=== PATIENT | female | born 1940 | race Two or more races ===

== ENCOUNTER 2017-10-08 15:19 | Inpatient (IN) | payer SELFPAY ==
[~2017-10-08] VITALS: Ht 154.9 cm; Wt 59.9 kg
[2017-10-08] MEDS ORDERED: SODIUM CHLORIDE 0.9% 1,000 ML IV ONE (15:33)
[2017-10-08 16:23] LABS: Basophils # (auto) 0 uL; Basophils % (auto) 0.2 % (0.0-2.0); Eosinophils # (auto) 0 uL; Eosinophils % (auto) 0.2 % (0.0-7.0); Hematocrit 42.5 % (36.0-46.0); Hemoglobin 14.5 g/dL (12.2-16.2); Lymphocytes # (auto) 1.4 uL; Lymphocytes % (auto) 16.1 % (10.0-50.0); Mean Corpuscular Hemoglobin 31.2 pg (28.0-32.0); Mean Corpuscular Hgb Conc. 34.2 g/dL (32.0-36.0); Mean Corpuscular Volume 91.4 fL (80.0-100.0); Monocytes # (auto) 1.1 uL; Monocytes % (auto) 12.6 % (0.0-12.0); Neutrophils # (auto) 5.9 uL; Neutrophils % (auto) 70.9 % (37.0-80.0); Nucleated Red Blood Cells % 0.1 %; Platelet Count (auto) 226 10^3/uL (140-450); Red Blood Cells 4.65 10^6/uL (4.0-5.20); Red Cell Distribution Width 13.7 % (11.8-14.3); White Blood Cell 8.4 10^3/uL (4.4-10.8)
[2017-10-08 16:42] LABS: INR 0.93 (0.9-1.15); Partial Thromboplastin Time 26.1 sec (23.78-33.04)
[2017-10-08 16:49] LABS: Albumin 3.9 g/dL (3.4-5.0); BUN/Creatinine Ratio 14.2; Bilirubin, Total 0.6 mg/dL (0.2-1.0); Calcium 8.7 mg/dL (8.5-10.1); Potassium 4.6 mmol/L (3.5-5.1); Total Protein 7.7 g/dL (6.4-8.2)
[2017-10-08] MEDS ORDERED: ENOXAPARIN SOD 60 MG/0.6 ML SYRINGE SC ONE (17:00)
[2017-10-08] MEDS ORDERED: ASPirin 81 mg TAB PO ONE (17:00)
[2017-10-08] MEDS: SODIUM CHLORIDE 0.9% 1,000 ML IV SCH ×2 (17:07→21:48)
[2017-10-08] MEDS ORDERED: LACTULOSE 20Gm/30ML SOLN PO PRN (17:15)
[2017-10-08] MEDS ORDERED: HYDROcodone-ACET 5/325MG TAB PO ONE (17:15)
[2017-10-08] MEDS ORDERED: PROMETHAZINE HCL 25 MG/ML 1ML IV PRN (17:15)
[2017-10-08] MEDS ORDERED: TEMAZEPAM 15 MG CAP PO PRN (17:15)
[2017-10-08] MEDS ORDERED: MORPHINE SULF INJ 2 MG/ML SYRINGE 1ML IV PRN ×2 (17:15)
[2017-10-08] MEDS ORDERED: NITROGLYCERIN 0.4 MG SL TAB SL PRN (17:15)
[2017-10-08] MEDS ORDERED: LORazepam 0.5 MG TAB PO PRN (17:15)
[2017-10-08] MEDS ORDERED: LABETALOL HCL 5 MG/ML ML 20ML VIAL IV PRN (17:15)
[2017-10-08 18:19] LABS: CRP High Sensitivity 0.56 mg/dL (< 0.3)
[2017-10-08 18:25] LABS: Folate (Folic Acid) 21.61 ng/mL (5.38-24)
[2017-10-08 20:35] VITALS: BP 137/73
[2017-10-08] MEDS: ATORVASTATIN 20 MG TAB PO SCH (21:48)
[2017-10-08] MEDS ORDERED: ATEN100T PO (22:07)
[2017-10-09] VITALS (7 sets, daily range): BP systolic 115–191; BP diastolic 59–78
[2017-10-09] MEDS ORDERED: hydrALAZINE HCL 20 MG/ML VL IV ONE (03:00)
[2017-10-09 05:27] LABS: Urine WBC None Seen /hpf (0 - 5)
[2017-10-09 06:06] LABS: Alcohol, Urine < 3.0 mg/dL (0-5); Amphetamine Screen, Urine NEGATIVE (NEGATIVE); Barbiturate Scree,Urine NEGATIVE (NEGATIVE); Benzodiazephine Screen, Urine NEGATIVE (NEGATIVE); Cannabinoid Screen, Urine NEGATIVE (NEGATIVE); Cocaine Screen, Urine NEGATIVE (NEGATIVE); Opiate Scree,Urine NEGATIVE (NEGATIVE); Phencyclidine Screen, Urine NEGATIVE (NEGATIVE)
[2017-10-09 06:49] LABS: Urine Bacteria NONE SEEN /hpf (None Seen); Urine Blood Negative /uL (Negative); Urine Hyaline Cast MOD /lpf (0 - 2); Urine Mucus FEW (None Seen); Urine Specific Gravity 1.014 (1.001-1.035)
[2017-10-09] MEDS ORDERED: cloNIDine HCL 0.1 MG TAB PO ONE (08:00)
[2017-10-09] MEDS: ASPirin 81 mg TAB PO SCH (10:03)
[2017-10-09] MEDS: PANTOPRAZOLE 40 MG TAB PO SCH (10:03)
[2017-10-09] MEDS: ENOXAPARIN SOD 40 MG/0.4 ML SYRINGE SC SCH (10:03)
[2017-10-09] MEDS: ACETAMINOPHEN 500 MG TAB PO PRN ×2 (12:29→13:15)
[2017-10-09] MEDS: cloNIDine HCL 0.1 MG TAB PO PRN (14:54)
[2017-10-09] MEDS: SODIUM CHLORIDE 0.9% 1,000 ML IV SCH (18:04)
[2017-10-09] MEDS: ATORVASTATIN 20 MG TAB PO SCH (21:19)
[2017-10-10] VITALS: BP 150/89
[2017-10-10 06:27] LABS: Basophils # (auto) 0 uL; Basophils % (auto) 0.3 % (0.0-2.0); Eosinophils # (auto) 0 uL; Eosinophils % (auto) 0.3 % (0.0-7.0); Hematocrit 40.6 % (36.0-46.0); Hemoglobin 14.1 g/dL (12.2-16.2); Lymphocytes # (auto) 1.3 uL; Lymphocytes % (auto) 22.1 % (10.0-50.0); Mean Corpuscular Hemoglobin 31.5 pg (28.0-32.0); Mean Corpuscular Hgb Conc. 34.7 g/dL (32.0-36.0); Mean Corpuscular Volume 90.8 fL (80.0-100.0); Monocytes # (auto) 0.6 uL; Monocytes % (auto) 10.3 % (0.0-12.0); Neutrophils # (auto) 3.8 uL; Platelet Count (auto) 192 10^3/uL (140-450); Red Blood Cells 4.47 10^6/uL (4.0-5.20); Red Cell Distribution Width 13.3 % (11.8-14.3); White Blood Cell 5.7 10^3/uL (4.4-10.8)
[2017-10-10] MEDS: SODIUM CHLORIDE 0.9% 1,000 ML IV SCH ×2 (06:37→19:07)
[2017-10-10 06:42] LABS: Albumin 3.2 g/dL (3.4-5.0); BUN/Creatinine Ratio 28.9; Calcium 8.6 mg/dL (8.5-10.1)
[2017-10-10 06:45] LABS: Bilirubin, Total 0.5 mg/dL (0.2-1.0); Total Protein 6.6 g/dL (6.4-8.2)
[2017-10-10 08:00] VITALS: BP 176/79
[2017-10-10] MEDS: ASPirin 81 mg TAB PO SCH (08:58)
[2017-10-10] MEDS: PANTOPRAZOLE 40 MG TAB PO SCH (08:58)
[2017-10-10] MEDS: cloNIDine HCL 0.1 MG TAB PO PRN ×2 (08:58→22:59)
[2017-10-10] MEDS: ENOXAPARIN SOD 40 MG/0.4 ML SYRINGE SC SCH (08:59)
[2017-10-10] MEDS: HYDROcodone-ACET 5/325MG TAB PO PRN (09:21)
[2017-10-10 11:51] VITALS: BP 177/78
[2017-10-10 16:00] VITALS: BP 156/64
[2017-10-10 20:20] VITALS: BP 164/78
[2017-10-10 22:00] VITALS: BP 186/89
[2017-10-10] MEDS: ATORVASTATIN 20 MG TAB PO SCH (22:47)
[2017-10-11] MEDS: cloNIDine HCL 0.1 MG TAB PO PRN ×2 (03:05→12:37)
[2017-10-11] MEDS: HYDROcodone-ACET 5/325MG TAB PO PRN ×2 (03:16→22:38)
[2017-10-11 05:57] VITALS: BP 141/76
[2017-10-11 07:03] LABS: Basophils # (auto) 0 uL; Basophils % (auto) 0.2 % (0.0-2.0); Eosinophils # (auto) 0 uL; Eosinophils % (auto) 0.1 % (0.0-7.0); Hematocrit 43.9 % (36.0-46.0); Hemoglobin 15.1 g/dL (12.2-16.2); Lymphocytes # (auto) 1.2 uL; Lymphocytes % (auto) 15.8 % (10.0-50.0); Mean Corpuscular Hemoglobin 31.1 pg (28.0-32.0); Mean Corpuscular Hgb Conc. 34.3 g/dL (32.0-36.0); Mean Corpuscular Volume 90.8 fL (80.0-100.0); Monocytes # (auto) 0.7 uL; Monocytes % (auto) 9.4 % (0.0-12.0); Neutrophils # (auto) 5.4 uL; Neutrophils % (auto) 74.5 % (37.0-80.0); Platelet Count (auto) 213 10^3/uL (140-450); Red Blood Cells 4.83 10^6/uL (4.0-5.20); Red Cell Distribution Width 13.6 % (11.8-14.3); White Blood Cell 7.3 10^3/uL (4.4-10.8)
[2017-10-11 07:26] LABS: Albumin 3.7 g/dL (3.4-5.0); BUN/Creatinine Ratio 24.1; Bilirubin, Total 0.5 mg/dL (0.2-1.0); Potassium 3.6 mmol/L (3.5-5.1); Total Protein 7.5 g/dL (6.4-8.2)
[2017-10-11] MEDS: SODIUM CHLORIDE 0.9% 1,000 ML IV SCH ×2 (07:37→20:07)
[2017-10-11 08:38] VITALS: BP 155/89
[2017-10-11] MEDS: ENOXAPARIN SOD 40 MG/0.4 ML SYRINGE SC SCH (10:20)
[2017-10-11] MEDS: PANTOPRAZOLE 40 MG TAB PO SCH (10:21)
[2017-10-11] MEDS: ASPirin 81 mg TAB PO SCH (10:21)
[2017-10-11 12:00] VITALS: BP 161/97
[2017-10-11] MEDS: ACETAMINOPHEN 500 MG TAB PO PRN (13:28)
[2017-10-11 16:55] VITALS: BP 151/75
[2017-10-11 22:00] VITALS: BP 136/78
[2017-10-11] MEDS: ATORVASTATIN 20 MG TAB PO SCH (22:38)
[2017-10-12] VITALS (7 sets, daily range): BP systolic 141–206; BP diastolic 65–100
[2017-10-12] MEDS: SODIUM CHLORIDE 0.9% 1,000 ML IV SCH ×2 (05:00→21:07)
[2017-10-12 06:17] LABS: Basophils # (auto) 0 uL; Basophils % (auto) 0.1 % (0.0-2.0); Eosinophils # (auto) 0 uL; Eosinophils % (auto) 0.2 % (0.0-7.0); Hematocrit 38.3 % (36.0-46.0); Hemoglobin 13.2 g/dL (12.2-16.2); Lymphocytes % (auto) 13.9 % (10.0-50.0); Mean Corpuscular Hemoglobin 31.3 pg (28.0-32.0); Mean Corpuscular Hgb Conc. 34.6 g/dL (32.0-36.0); Mean Corpuscular Volume 90.7 fL (80.0-100.0); Monocytes # (auto) 0.9 uL; Monocytes % (auto) 12.4 % (0.0-12.0); Neutrophils # (auto) 5.4 uL; Neutrophils % (auto) 73.4 % (37.0-80.0); Platelet Count (auto) 189 10^3/uL (140-450); Red Blood Cells 4.22 10^6/uL (4.0-5.20); Red Cell Distribution Width 13.7 % (11.8-14.3); White Blood Cell 7.4 10^3/uL (4.4-10.8)
[2017-10-12 06:34] LABS: Albumin 3.3 g/dL (3.4-5.0); BUN/Creatinine Ratio 37.1; Bilirubin, Total 0.6 mg/dL (0.2-1.0); Calcium 8.7 mg/dL (8.5-10.1); Potassium 3.7 mmol/L (3.5-5.1); Total Protein 6.6 g/dL (6.4-8.2)
[2017-10-12] MEDS: PANTOPRAZOLE 40 MG TAB PO SCH (11:24)
[2017-10-12] MEDS: ASPirin 81 mg TAB PO SCH (11:24)
[2017-10-12] MEDS: ENOXAPARIN SOD 40 MG/0.4 ML SYRINGE SC SCH (11:25)
[2017-10-12] MEDS: cloNIDine HCL 0.1 MG TAB PO PRN (16:35)
[2017-10-12] MEDS: ATORVASTATIN 20 MG TAB PO SCH (22:00)
[2017-10-13 05:45] VITALS: BP 143/60
[2017-10-13] MEDS: ASPirin 81 mg TAB PO SCH (09:30)
[2017-10-13] MEDS: PANTOPRAZOLE 40 MG TAB PO SCH (09:30)
[2017-10-13] MEDS: ENOXAPARIN SOD 40 MG/0.4 ML SYRINGE SC SCH (09:30)
[2017-10-13] MEDS: HYDROcodone-ACET 5/325MG TAB PO PRN (09:35)
[2017-10-13] MEDS: SODIUM CHLORIDE 0.9% 1,000 ML IV SCH (09:37)
[2017-10-13 11:19] VITALS: BP 151/74
== END 2017-10-13 12:50 | disposition home or self-care (01) | DRG 69 ==
LOC: ER 15:19 → TELE 15:20 → DOU IN ICU 20:35 → TELE-CENTR 10-10 21:46
PROVIDERS: ADMIT Internal Medicine; ATTEND Family Medicine
DX: G45.9 Transient cerebral ischemic attack, unspecified (principal); N17.9 Acute kidney failure, unspecified; R00.1 Bradycardia, unspecified; R07.89 Other chest pain; R55 Syncope and collapse; I12.9 Hypertensive chronic kidney disease with stage 1 through stage 4 chronic kidney disease, or unspecified chronic kidney disease; R91.1 Solitary pulmonary nodule; R94.39 Abnormal result of other cardiovascular function study; T44.7X5A Adverse effect of beta-adrenoreceptor antagonists, initial encounter; K58.9 Irritable bowel syndrome, unspecified; N18.3 Chronic kidney disease, stage 3 (moderate); Z79.82 Long term (current) use of aspirin; Z79.899 Other long term (current) drug therapy; Z90.710 Acquired absence of both cervix and uterus; Y92.89 Other specified places as the place of occurrence of the external cause
CPT/HCPCS: 36415; 70450; 70486; 71045; 71250; 80053; 80307; 81001; 82550; 82607; 82746; 83880; 84443; 84484; 85025; 85610; 85652; 85730; 86141; 87081; 93005; 93017; 93306; 93886; 96360; 96372

== ENCOUNTER 2017-10-16 03:24 | Inpatient (IN) | payer SELFPAY ==
[~2017-10-16] VITALS: Ht 160 cm; Wt 59.1 kg
[~2017-10-16 03:24] MED LIST: ATEN100T PO
[2017-10-16] MEDS ORDERED: ASPirin 81 mg TAB PO ONE (04:15)
[2017-10-16] MEDS ORDERED: ATENOLOL 25 MG TAB PO ONE (04:15)
[2017-10-16 04:30] LABS: Basophils # (auto) 0 uL; Basophils % (auto) 0.4 % (0.0-2.0); Eosinophils # (auto) 0 uL; Eosinophils % (auto) 0.4 % (0.0-7.0); Hematocrit 42.2 % (36.0-46.0); Hemoglobin 14.7 g/dL (12.2-16.2); Lymphocytes % (auto) 13.8 % (10.0-50.0); Mean Corpuscular Hemoglobin 31.7 pg (28.0-32.0); Mean Corpuscular Hgb Conc. 34.8 g/dL (32.0-36.0); Monocytes # (auto) 0.9 uL; Monocytes % (auto) 13.5 % (0.0-12.0); Neutrophils % (auto) 71.9 % (37.0-80.0); Nucleated Red Blood Cells % 0.2 %; Platelet Count (auto) 153 10^3/uL (140-450); Red Blood Cells 4.64 10^6/uL (4.0-5.20); Red Cell Distribution Width 13.6 % (11.8-14.3); White Blood Cell 6.9 10^3/uL (4.4-10.8)
[2017-10-16] MEDS ORDERED: DIGOXIN (250MCG/ML) 2 ML AMPULE IV ONE ×2 (04:45→05:00)
[2017-10-16 04:47] LABS: INR 0.95 (0.9-1.15); Partial Thromboplastin Time 26.6 sec (23.78-33.04); Prothrombin Time 10.2 sec (9.27-12.13)
[2017-10-16 04:49] LABS: Alanine Aminotransferase 69 U/L (13-56); Albumin 3.2 g/dL (3.4-5.0); Anion Gap 12 (5-15); Aspartate Aminotransferase 49 U/L (15-37); BUN/Creatinine Ratio 18.5; Blood Urea Nitrogen 12 mg/dL (7-18); Calcium 8.2 mg/dL (8.5-10.1); Carbon Dioxide 24 mmol/L (21-32); Chloride 105 mmol/L (98-107); GFR African American 114 mL/min; GFR Non-African American 94 mL/min; Glucose 136 mg/dL (74-106); Magnesium 1.9 mg/dL (1.6-2.6); Potassium 3.1 mmol/L (3.5-5.1); Sodium 141 mmol/L (136-145)
[2017-10-16 04:56] LABS: Alkaline Phosphatase 126 U/L (45-117); Bilirubin, Total 0.8 mg/dL (0.2-1.0)
[2017-10-16] MEDS ORDERED: POTASSIUM CHL 20 Meq TABLET PO ONE ×2 (05:45→17:15)
[2017-10-16] MEDS ORDERED: FUROSEMIDE 20 MG/2 ML VIAL IV ONE (05:45)
[2017-10-16] MEDS ORDERED: TEMAZEPAM 15 MG CAP PO PRN (07:00)
[2017-10-16] MEDS ORDERED: MORPHINE SULF(PF) 0.5MG/ML 10ML VIAL IV PRN (07:00)
[2017-10-16] MEDS ORDERED: NITROGLYCERIN 0.4 MG SL TAB SL PRN (07:00)
[2017-10-16] MEDS ORDERED: ONDANSETRON HCL 4 MG/2 ML VIAL IV PRN (07:00)
[2017-10-16 07:05] LABS: Urine Bacteria FEW /hpf (None Seen); Urine Blood Negative /uL (Negative); Urine Mucus FEW (None Seen); Urine Specific Gravity 1.009 (1.001-1.035); Urine WBC 1 /hpf (0 - 5)
[2017-10-16] MEDS ORDERED: cloNIDine HCL 0.1 MG TAB ONE (07:22)
[2017-10-16] MEDS ORDERED: cloNIDine HCL 0.1 MG TAB PO ONE (07:30)
[2017-10-16] MEDS ORDERED: IOHEXOL 350 MG/ML 100ML IJ ONE (07:35)
[2017-10-16] MEDS: ENOXAPARIN SOD 40 MG/0.4 ML SYRINGE SC SCH (09:51)
[2017-10-16] MEDS: FAMOTIDINE 20 MG TAB PO SCH ×3 (09:52→22:00)
[2017-10-16] MEDS ORDERED: METOPROLOL TARTRATE 25 MG TAB PO SCH (10:00)
[2017-10-16] MEDS: AMIODARONE HCL 200 MG TAB PO SCH ×2 (10:57→21:27)
[2017-10-16] MEDS: HYDROcodone-ACET 5/325MG TAB PO PRN (14:37)
[2017-10-16] MEDS: cloNIDine HCL 0.1 MG TAB PO PRN (18:47)
[2017-10-16 20:00] VITALS: BP 114/67
[2017-10-16 20:20] VITALS: BP 114/67
[2017-10-16] MEDS: ACETAMINOPHEN 325 MG TAB PO PRN (22:45)
[2017-10-17] VITALS: BP 134/60
[2017-10-17 04:00] VITALS: BP 148/72
[2017-10-17 06:07] LABS: Hematocrit 40.1 % (36.0-46.0); Hemoglobin 13.9 g/dL (12.2-16.2); Mean Corpuscular Hemoglobin 31.1 pg (28.0-32.0); Mean Corpuscular Hgb Conc. 34.6 g/dL (32.0-36.0); Mean Corpuscular Volume 89.9 fL (80.0-100.0); Platelet Count (auto) 179 10^3/uL (140-450); Red Blood Cells 4.46 10^6/uL (4.0-5.20); Red Cell Distribution Width 13.4 % (11.8-14.3); White Blood Cell 5.3 10^3/uL (4.4-10.8)
[2017-10-17] MEDS: ACETAMINOPHEN 325 MG TAB PO PRN (06:22)
[2017-10-17 06:31] LABS: Albumin 3.2 g/dL (3.4-5.0); BUN/Creatinine Ratio 23.8; Calcium 8.3 mg/dL (8.5-10.1); Potassium 3.6 mmol/L (3.5-5.1)
[2017-10-17 06:33] LABS: Bilirubin, Total 0.7 mg/dL (0.2-1.0); Total Protein 6.8 g/dL (6.4-8.2)
[2017-10-17 07:37] LABS: Band Neutrophils % (manual) 0; Eosinophils % (manual) 0 (0-7)
[2017-10-17 07:38] LABS: Basophils % (manual) 0 (0.0-2.0); Blast Cells 0; Metamyelocytes % 0; Myelocytes % 0; Promyelocytes % 0; Reactive Lymphocytes 0
[2017-10-17 08:00] VITALS: BP 169/73
[2017-10-17] MEDS: FAMOTIDINE 20 MG TAB PO SCH ×2 (09:52→20:50)
[2017-10-17] MEDS: HYDROcodone-ACET 5/325MG TAB PO PRN ×2 (09:52→18:07)
[2017-10-17] MEDS: cloNIDine HCL 0.1 MG TAB PO PRN (09:52)
[2017-10-17] MEDS: ENOXAPARIN SOD 40 MG/0.4 ML SYRINGE SC SCH (09:52)
[2017-10-17] MEDS: AMIODARONE HCL 200 MG TAB PO SCH ×3 (09:52→20:49)
[2017-10-17 10:23] LABS: Lymphocytes % (manual) 15 (10.0-50.0); Monocytes % (manual) 12 (0-12)
[2017-10-17 12:00] VITALS: BP 148/62
[2017-10-17 15:56] VITALS: BP 118/50
[2017-10-17] MEDS ORDERED: ENOXAPARIN SOD 100 MG/1 ML SYRINGE SC ONE (16:45)
[2017-10-17] MEDS: ENOXAPARIN SOD 60 MG/0.6 ML SYRINGE SC SCH (18:07)
[2017-10-17 19:12] LABS: INR 0.95 (0.9-1.15); Partial Thromboplastin Time 28.2 sec (23.78-33.04); Prothrombin Time 10.2 sec (9.27-12.13)
[2017-10-17] MEDS ORDERED: WARFARIN SODIUM 5 MG TAB PO ONE (19:30)
[2017-10-17 19:52] VITALS: BP 170/69
[2017-10-18] VITALS (7 sets, daily range): BP systolic 112–186; BP diastolic 58–90
[2017-10-18] MEDS: ENOXAPARIN SOD 60 MG/0.6 ML SYRINGE SC SCH ×2 (03:58→16:49)
[2017-10-18] MEDS: HYDROcodone-ACET 5/325MG TAB PO PRN ×2 (03:59→12:24)
[2017-10-18 06:00] LABS: Basophils # (auto) 0 uL; Basophils % (auto) 0.2 % (0.0-2.0); Eosinophils # (auto) 0 uL; Eosinophils % (auto) 0.6 % (0.0-7.0); Hematocrit 36.8 % (36.0-46.0); Hemoglobin 12.7 g/dL (12.2-16.2); Lymphocytes % (auto) 15.5 % (10.0-50.0); Mean Corpuscular Hemoglobin 30.9 pg (28.0-32.0); Mean Corpuscular Hgb Conc. 34.5 g/dL (32.0-36.0); Mean Corpuscular Volume 89.8 fL (80.0-100.0); Monocytes # (auto) 0.9 uL; Monocytes % (auto) 13.2 % (0.0-12.0); Neutrophils # (auto) 4.8 uL; Neutrophils % (auto) 70.5 % (37.0-80.0); Platelet Count (auto) 202 10^3/uL (140-450); Red Blood Cells 4.09 10^6/uL (4.0-5.20); Red Cell Distribution Width 13.4 % (11.8-14.3); White Blood Cell 6.7 10^3/uL (4.4-10.8)
[2017-10-18 07:31] LABS: INR 0.98 (0.9-1.15); Partial Thromboplastin Time 27.8 sec (23.78-33.04); Prothrombin Time 10.5 sec (9.27-12.13)
[2017-10-18] MEDS: cloNIDine HCL 0.1 MG TAB PO PRN ×2 (08:49→23:53)
[2017-10-18] MEDS: ACETAMINOPHEN 325 MG TAB PO PRN ×2 (08:54→23:58)
[2017-10-18] MEDS: AMIODARONE HCL 200 MG TAB PO SCH ×2 (10:08→21:08)
[2017-10-18] MEDS: FAMOTIDINE 20 MG TAB PO SCH ×2 (10:08→21:17)
[2017-10-18] MEDS ORDERED: WARFARIN SODIUM 5 MG TAB PO ONE (17:00)
[2017-10-19] VITALS: BP 144/69
[2017-10-19 05:00] VITALS: BP 151/85
[2017-10-19] MEDS: ENOXAPARIN SOD 60 MG/0.6 ML SYRINGE SC SCH ×2 (05:16→16:53)
[2017-10-19 06:00] LABS: Basophils # (auto) 0 uL; Basophils % (auto) 0.5 % (0.0-2.0); Eosinophils # (auto) 0 uL; Eosinophils % (auto) 0.2 % (0.0-7.0); Hematocrit 39.6 % (36.0-46.0); Lymphocytes % (auto) 15.1 % (10.0-50.0); Mean Corpuscular Hemoglobin 31.4 pg (28.0-32.0); Mean Corpuscular Hgb Conc. 35.3 g/dL (32.0-36.0); Mean Corpuscular Volume 88.8 fL (80.0-100.0); Monocytes # (auto) 0.8 uL; Monocytes % (auto) 12.1 % (0.0-12.0); Neutrophils # (auto) 4.9 uL; Neutrophils % (auto) 72.1 % (37.0-80.0); Platelet Count (auto) 266 10^3/uL (140-450); Red Blood Cells 4.46 10^6/uL (4.0-5.20); Red Cell Distribution Width 13.5 % (11.8-14.3); White Blood Cell 6.8 10^3/uL (4.4-10.8)
[2017-10-19 06:17] LABS: INR 1.22 (0.9-1.15); Partial Thromboplastin Time 30.9 sec (23.78-33.04); Prothrombin Time 12.9 sec (9.27-12.13)
[2017-10-19] MEDS: cloNIDine HCL 0.1 MG TAB PO PRN ×3 (07:53→21:54)
[2017-10-19 08:00] VITALS: BP 188/71
[2017-10-19] MEDS: FAMOTIDINE 20 MG TAB PO SCH ×2 (10:15→21:52)
[2017-10-19] MEDS: AMIODARONE HCL 200 MG TAB PO SCH ×2 (10:16→21:53)
[2017-10-19 12:00] VITALS: BP 153/78
[2017-10-19 17:00] VITALS: BP 180/76
[2017-10-19] MEDS ORDERED: WARFARIN SODIUM 5 MG TAB PO ONE (17:00)
[2017-10-19] MEDS: HYDROcodone-ACET 5/325MG TAB PO PRN (20:31)
[2017-10-19 21:35] VITALS: BP 181/72
[2017-10-20 04:48] VITALS: BP 164/80
[2017-10-20] MEDS: ENOXAPARIN SOD 60 MG/0.6 ML SYRINGE SC SCH ×2 (04:49→15:57)
[2017-10-20 06:45] LABS: INR 1.72 (0.9-1.15); Prothrombin Time 17.8 sec (9.27-12.13)
[2017-10-20 06:53] LABS: Albumin 3.5 g/dL (3.4-5.0); BUN/Creatinine Ratio 28.2; Bilirubin, Total 0.8 mg/dL (0.2-1.0); Calcium 8.9 mg/dL (8.5-10.1); Potassium 3.6 mmol/L (3.5-5.1); Total Protein 7.5 g/dL (6.4-8.2)
[2017-10-20 06:59] LABS: Basophils # (auto) 0.3 uL; Basophils % (auto) 4.2 % (0.0-2.0); Eosinophils # (auto) 0.1 uL; Eosinophils % (auto) 0.8 % (0.0-7.0); Hematocrit 41.7 % (36.0-46.0); Hemoglobin 14.3 g/dL (12.2-16.2); Lymphocytes # (auto) 1.2 uL; Lymphocytes % (auto) 19.3 % (10.0-50.0); Mean Corpuscular Hgb Conc. 34.3 g/dL (32.0-36.0); Mean Corpuscular Volume 90.5 fL (80.0-100.0); Monocytes # (auto) 0.8 uL; Monocytes % (auto) 12.9 % (0.0-12.0); Neutrophils % (auto) 62.8 % (37.0-80.0); Nucleated Red Blood Cells % 0.1 %; Platelet Count (auto) 330 10^3/uL (140-450); Red Blood Cells 4.61 10^6/uL (4.0-5.20); Red Cell Distribution Width 13.4 % (11.8-14.3); White Blood Cell 6.3 10^3/uL (4.4-10.8)
[2017-10-20 09:00] VITALS: BP 137/71
[2017-10-20] MEDS: AMIODARONE HCL 200 MG TAB PO SCH ×2 (10:00→22:36)
[2017-10-20] MEDS: FAMOTIDINE 20 MG TAB PO SCH ×2 (10:38→23:07)
[2017-10-20] MEDS: HYDROcodone-ACET 5/325MG TAB PO PRN ×3 (10:43→21:55)
[2017-10-20] MEDS ORDERED: LIDOCAINE 2% (LOCAL ANESTH.) PF 5ml SDV ONE (12:42)
[2017-10-20 13:00] VITALS: BP 153/76
[2017-10-20] MEDS ORDERED: fentaNYL CITRATE 100 MCG/2 ML VL ONE (13:55)
[2017-10-20] MEDS ORDERED: VANCOMYCIN HCL 1000 MG VL ONE (13:55)
[2017-10-20] MEDS ORDERED: MIDAZOLAM HCL 1MG/1ML-2 ML VIAL ONE (13:55)
[2017-10-20] MEDS ORDERED: VANCOMYCIN 1GM/250ML 250 ML IV ONE (13:56)
[2017-10-20] MEDS ORDERED: ENALAPRILAT 1.25 MG/ML-1ML VIAL IV ONE (14:39)
[2017-10-20] MEDS ORDERED: ACETAMINOPHEN 325 MG TAB PO PRN (15:15)
[2017-10-20] MEDS ORDERED: METOPROLOL SUCCINATE XL 50 MG TAB PO ONE (15:15)
[2017-10-20 17:00] VITALS: BP 180/79
[2017-10-20] MEDS ORDERED: WARFARIN SODIUM 5 MG TAB PO ONE (17:00)
[2017-10-20 18:00] VITALS: BP 189/75
[2017-10-20] MEDS: cloNIDine HCL 0.1 MG TAB PO PRN (18:03)
[2017-10-20 21:47] VITALS: BP 189/73
[2017-10-21] VITALS (9 sets, daily range): BP systolic 134–163; BP diastolic 73–101
[2017-10-21] MEDS: ENOXAPARIN SOD 60 MG/0.6 ML SYRINGE SC SCH ×2 (04:49→07:42)
[2017-10-21] MEDS: HYDROcodone-ACET 5/325MG TAB PO PRN (05:30)
[2017-10-21 06:00] LABS: Basophils # (auto) 0 uL; Basophils % (auto) 0.5 % (0.0-2.0); Eosinophils # (auto) 0 uL; Eosinophils % (auto) 0.5 % (0.0-7.0); Hematocrit 40.7 % (36.0-46.0); Hemoglobin 14.2 g/dL (12.2-16.2); Lymphocytes # (auto) 0.8 uL; Lymphocytes % (auto) 11.8 % (10.0-50.0); Mean Corpuscular Hemoglobin 31.2 pg (28.0-32.0); Mean Corpuscular Hgb Conc. 34.8 g/dL (32.0-36.0); Mean Corpuscular Volume 89.6 fL (80.0-100.0); Monocytes # (auto) 0.9 uL; Monocytes % (auto) 14.4 % (0.0-12.0); Neutrophils # (auto) 4.8 uL; Neutrophils % (auto) 72.8 % (37.0-80.0); Platelet Count (auto) 343 10^3/uL (140-450); Red Blood Cells 4.54 10^6/uL (4.0-5.20); Red Cell Distribution Width 13.2 % (11.8-14.3); White Blood Cell 6.6 10^3/uL (4.4-10.8)
[2017-10-21 06:08] LABS: INR 2.75 (0.9-1.15); Partial Thromboplastin Time 35.3 sec (23.78-33.04); Prothrombin Time 27.8 sec (9.27-12.13)
[2017-10-21 06:19] LABS: Albumin 3.3 g/dL (3.4-5.0); BUN/Creatinine Ratio 24.4; Calcium 8.5 mg/dL (8.5-10.1); Potassium 3.6 mmol/L (3.5-5.1)
[2017-10-21 06:22] LABS: Bilirubin, Total 0.7 mg/dL (0.2-1.0)
[2017-10-21] MEDS: AMIODARONE HCL 200 MG TAB PO SCH (09:24)
[2017-10-21] MEDS: FAMOTIDINE 20 MG TAB PO SCH (09:25)
[2017-10-21] MEDS ORDERED: METOPROLOL SUCCINATE XL 50 MG TAB PO SCH (10:00)
[2017-10-21] MEDS: cloNIDine HCL 0.1 MG TAB PO PRN (15:36)
[2017-10-21] MEDS ORDERED: WARFARIN SODIUM 1 MG TAB PO ONE (17:00)
[2017-10-21] MEDS ORDERED: METOPROLOL TARTRATE 50 MG TAB PO SCH (22:00)
== END 2017-10-21 21:25 | disposition home or self-care (01) | DRG 243 ==
LOC: ER 03:26 → TELE 03:27 → DOU IN ICU 18:15 → TELE-WESTW 10-18 22:40
PROVIDERS: ADMIT Nurse Practitioner; ATTEND Internal Medicine
PROC: 0JH606Z Insertion of Pacemaker, Dual Chamber into Chest Subcutaneous Tissue and Fascia, Open Approach (ICD-10-PCS; principal; 2017-10-20)
PROC: 02H63JZ Insertion of Pacemaker Lead into Right Atrium, Percutaneous Approach (ICD-10-PCS; 2017-10-20)
PROC: 02HK3JZ Insertion of Pacemaker Lead into Right Ventricle, Percutaneous Approach (ICD-10-PCS; 2017-10-20)
PROC: B5171ZA Fluoroscopy of Left Subclavian Vein using Low Osmolar Contrast, Guidance (ICD-10-PCS; 2017-10-20)
DX: I49.5 Sick sinus syndrome (principal); S22.089A Unspecified fracture of T11-T12 vertebra, initial encounter for closed fracture; D68.69 Other thrombophilia; E44.0 Moderate protein-calorie malnutrition; I13.0 Hypertensive heart and chronic kidney disease with heart failure and stage 1 through stage 4 chronic kidney disease, or unspecified chronic kidney disease; I48.92 Unspecified atrial flutter; R65.10 Systemic inflammatory response syndrome (SIRS) of non-infectious origin without acute organ dysfunction; E87.6 Hypokalemia; I35.1 Nonrheumatic aortic (valve) insufficiency; W18.39XA Other fall on same level, initial encounter; G47.00 Insomnia, unspecified; M54.5 Low back pain; I48.0 Paroxysmal atrial fibrillation; I50.9 Heart failure, unspecified; N18.3 Chronic kidney disease, stage 3 (moderate); Z79.01 Long term (current) use of anticoagulants; Z82.5 Family history of asthma and other chronic lower respiratory diseases; Z68.23 Body mass index [BMI] 23.0-23.9, adult; Z90.710 Acquired absence of both cervix and uterus; Z79.899 Other long term (current) drug therapy; Y93.89 Activity, other specified; Y92.89 Other specified places as the place of occurrence of the external cause; Y99.8 Other external cause status
CPT/HCPCS: 36415; 71045; 71275; 72131; 80053; 81001; 83605; 83735; 83880; 84443; 84484; 85007; 85025; 85027; 85379; 85610; 85730; 87081; 93005; 96372; 96374; 96375; 99152; C1785; J2250; J2405

== ENCOUNTER 2017-10-29 21:44 | Inpatient (IN) | payer SELFPAY ==
[~2017-10-29] VITALS: Ht 157.5 cm; Wt 56.8 kg
[2017-10-29 23:02] LABS: Basophils # (auto) 0.1 uL; Eosinophils # (auto) 0 uL; Monocytes # (auto) 0.9 uL; Nucleated Red Blood Cells % 0.1 %; Red Cell Distribution Width 13.8 % (11.8-14.3)
[2017-10-29 23:08] LABS: Basophils % (auto) 0.4 % (0.0-2.0); Eosinophils % (auto) 0.3 % (0.0-7.0); Hemoglobin 12.9 g/dL (12.2-16.2); Lymphocytes # (auto) 1.3 uL; Lymphocytes % (auto) 9.4 % (10.0-50.0); Mean Corpuscular Hemoglobin 30.8 pg (28.0-32.0); Mean Corpuscular Hgb Conc. 34.1 g/dL (32.0-36.0); Mean Corpuscular Volume 90.4 fL (80.0-100.0); Monocytes % (auto) 6.8 % (0.0-12.0); Neutrophils # (auto) 11.3 uL; Neutrophils % (auto) 83.1 % (37.0-80.0); Platelet Count (auto) 268 10^3/uL (140-450); White Blood Cell 13.6 10^3/uL (4.4-10.8)
[2017-10-29 23:19] LABS: Anion Gap 11 (5-15); BUN/Creatinine Ratio 23.8; Blood Urea Nitrogen 29 mg/dL (7-18); Calcium 8.3 mg/dL (8.5-10.1); Carbon Dioxide 24 mmol/L (21-32); Chloride 105 mmol/L (98-107); GFR African American 55 mL/min; GFR Non-African American 46 mL/min; Glucose 160 mg/dL (74-106); Potassium 4.6 mmol/L (3.5-5.1); Sodium 140 mmol/L (136-145)
[2017-10-29 23:21] LABS: Lactic Acid w/Reflex 2.3 mmol/L (0.4-2.0)
[2017-10-29 23:40] LABS: Alanine Aminotransferase 127 U/L (13-56); Albumin 3.4 g/dL (3.4-5.0); Aspartate Aminotransferase 207 U/L (15-37)
[2017-10-29 23:42] LABS: Alkaline Phosphatase 195 U/L (45-117); Bilirubin, Total 0.5 mg/dL (0.2-1.0); Total Protein 6.9 g/dL (6.4-8.2)
[2017-10-29 23:44] LABS: Lipase 296 U/L (73-393); Magnesium 2.5 mg/dL (1.6-2.6)
[2017-10-30] MEDS ORDERED: MECLIZINE HCL 25 MG TAB PO ONE (02:45)
[2017-10-30] MEDS ORDERED: HYDROcodone-ACET 5/325MG TAB PO ONE (02:45)
[2017-10-30] MEDS ORDERED: HYDROcodone-ACET 5/325MG TAB PO PRN (04:30)
[2017-10-30] MEDS ORDERED: ONDANSETRON HCL 4 MG/2 ML VIAL IV PRN (04:30)
[2017-10-30] MEDS ORDERED: MECLIZINE HCL 25 MG TAB PO PRN (04:30)
[2017-10-30] MEDS ORDERED: TEMAZEPAM 15 MG CAP PO PRN (04:30)
[2017-10-30] MEDS ORDERED: cefTRIAXone 1GM/10ml IVPUSH 10 ML IV ONE (04:30)
[2017-10-30 06:29] LABS: INR 1.16 (0.9-1.15); Partial Thromboplastin Time 27.5 sec (23.78-33.04); Prothrombin Time 12.3 sec (9.27-12.13)
[2017-10-30 06:30] VITALS: BP 158/74
[2017-10-30 06:47] LABS: Albumin 3.3 g/dL (3.4-5.0); Calcium 8.9 mg/dL (8.5-10.1)
[2017-10-30 06:49] LABS: Bilirubin, Total 0.6 mg/dL (0.2-1.0); Total Protein 6.8 g/dL (6.4-8.2)
[2017-10-30] MEDS ORDERED: CEPH500C PO (07:18)
[2017-10-30] MEDS ORDERED: ASPI81TA27 PO (07:18)
[2017-10-30] MEDS ORDERED: LOVA20TA4 PO (07:18)
[2017-10-30] MEDS ORDERED: ALPR0.254 PO (07:18)
[2017-10-30] MEDS ORDERED: WARF1TAB36 PO (07:18)
[2017-10-30] MEDS ORDERED: ACET-1156 PO (07:18)
[2017-10-30] MEDS ORDERED: ATEN-60 PO (07:18)
[2017-10-30 08:00] VITALS: BP 155/85
[2017-10-30] MEDS: PANTOPRAZOLE 40 MG TAB PO SCH (09:42)
[2017-10-30] MEDS: ACETAMINOPHEN 325 MG TAB PO PRN ×2 (09:48→17:04)
[2017-10-30] MEDS ORDERED: ENOXAPARIN SOD 40 MG/0.4 ML SYRINGE SC SCH (10:00)
[2017-10-30 12:00] VITALS: BP 141/69
[2017-10-30 17:00] VITALS: BP 165/81
[2017-10-30] MEDS ORDERED: WARFARIN SODIUM 2.5 MG TAB PO ONE (17:00)
[2017-10-30] MEDS ORDERED: cloNIDine HCL 0.1 MG TAB PO PRN (17:45)
[2017-10-30] MEDS: cefTRIAXone 1GM/10ml IVPUSH 10 ML IV SCH (21:37)
[2017-10-30] MEDS: MECLIZINE HCL 25 MG TAB PO SCH (21:38)
[2017-10-30] MEDS: ATENOLOL 25 MG TAB PO SCH (21:38)
[2017-10-30 21:45] VITALS: BP 151/81
[2017-10-31] MEDS: MECLIZINE HCL 25 MG TAB PO SCH ×3 (05:32→21:57)
[2017-10-31 05:40] LABS: Basophils # (auto) 0 uL; Basophils % (auto) 0.4 % (0.0-2.0); Eosinophils # (auto) 0 uL; Eosinophils % (auto) 0.2 % (0.0-7.0); Hematocrit 33.7 % (36.0-46.0); Hemoglobin 11.4 g/dL (12.2-16.2); Lymphocytes # (auto) 0.9 uL; Lymphocytes % (auto) 14.2 % (10.0-50.0); Mean Corpuscular Hemoglobin 31.3 pg (28.0-32.0); Mean Corpuscular Volume 92.2 fL (80.0-100.0); Monocytes # (auto) 0.7 uL; Monocytes % (auto) 10.8 % (0.0-12.0); Neutrophils # (auto) 4.7 uL; Neutrophils % (auto) 74.4 % (37.0-80.0); Platelet Count (auto) 247 10^3/uL (140-450); Red Blood Cells 3.66 10^6/uL (4.0-5.20); Red Cell Distribution Width 13.8 % (11.8-14.3); White Blood Cell 6.3 10^3/uL (4.4-10.8)
[2017-10-31 05:45] VITALS: BP 101/64
[2017-10-31 05:56] LABS: INR 1.4 (0.9-1.15); Partial Thromboplastin Time 29.6 sec (23.78-33.04); Prothrombin Time 14.7 sec (9.27-12.13)
[2017-10-31 06:06] LABS: Albumin 3.3 g/dL (3.4-5.0); BUN/Creatinine Ratio 30.6; Bilirubin, Total 0.4 mg/dL (0.2-1.0); Calcium 8.5 mg/dL (8.5-10.1); Potassium 4.5 mmol/L (3.5-5.1); Total Protein 6.7 g/dL (6.4-8.2)
[2017-10-31 09:00] VITALS: BP 152/71
[2017-10-31] MEDS: LISINOPRIL 10 MG TAB PO SCH (10:00)
[2017-10-31] MEDS: PANTOPRAZOLE 40 MG TAB PO SCH (10:00)
[2017-10-31] MEDS: ATENOLOL 25 MG TAB PO SCH ×2 (10:00→21:58)
[2017-10-31] MEDS ORDERED: LACTULOSE 20Gm/30ML SOLN PO PRN (12:15)
[2017-10-31 13:00] VITALS: BP 146/76
[2017-10-31 17:00] VITALS: BP 140/93
[2017-10-31] MEDS ORDERED: WARFARIN SODIUM 5 MG TAB PO ONE (17:00)
[2017-10-31 20:00] VITALS: BP 111/64
[2017-10-31] MEDS: cefTRIAXone 1GM/10ml IVPUSH 10 ML IV SCH (21:11)
[2017-10-31 22:00] VITALS: BP 111/64
[2017-11-01 05:28] VITALS: BP 143/95
[2017-11-01] MEDS: MECLIZINE HCL 25 MG TAB PO SCH ×2 (06:00→15:04)
[2017-11-01 06:21] LABS: Urine Bacteria FEW /hpf (None Seen); Urine Blood Negative /uL (Negative); Urine Mucus FEW (None Seen); Urine Specific Gravity 1.031 (1.001-1.035); Urine WBC 13 /hpf (0 - 5)
[2017-11-01 06:46] LABS: INR 2.28 (0.9-1.15); Prothrombin Time 23.3 sec (9.27-12.13)
[2017-11-01 08:00] VITALS: BP 123/83
[2017-11-01 08:27] VITALS: BP 123/83
[2017-11-01] MEDS: ATENOLOL 25 MG TAB PO SCH (09:47)
[2017-11-01] MEDS: PANTOPRAZOLE 40 MG TAB PO SCH (09:47)
[2017-11-01] MEDS: LISINOPRIL 10 MG TAB PO SCH (09:47)
[2017-11-01] MEDS ORDERED: LACTULOSE 20Gm/30ML SOLN PO SCH (10:00)
[2017-11-01 13:24] VITALS: BP 138/85
[2017-11-01] MEDS ORDERED: WARFARIN SODIUM 2.5 MG TAB PO ONE (17:00)
[2017-11-02 12:55] LABS: Hepatitis A Ab IgM Negative; Hepatitis B Core IgM Negative; Hepatitis B Surface Antigen Negative (Negative); Hepatitis C Antibody Negative (Negative)
== END 2017-11-01 16:27 | disposition home or self-care (01) | DRG 871 ==
LOC: ER 21:44 → OVERFLOW 21:54 → WEST WING 10-30 06:25
PROVIDERS: ADMIT Nurse Practitioner; ATTEND Family Medicine
DX: A41.9 Sepsis, unspecified organism (principal); N17.0 Acute kidney failure with tubular necrosis; I31.3 Pericardial effusion (noninflammatory); N39.0 Urinary tract infection, site not specified; E86.0 Dehydration; G89.29 Other chronic pain; I12.9 Hypertensive chronic kidney disease with stage 1 through stage 4 chronic kidney disease, or unspecified chronic kidney disease; I67.2 Cerebral atherosclerosis; I70.0 Atherosclerosis of aorta; I08.3 Combined rheumatic disorders of mitral, aortic and tricuspid valves; M54.9 Dorsalgia, unspecified; K42.9 Umbilical hernia without obstruction or gangrene; K57.30 Diverticulosis of large intestine without perforation or abscess without bleeding; N18.9 Chronic kidney disease, unspecified; Z82.5 Family history of asthma and other chronic lower respiratory diseases; Z90.710 Acquired absence of both cervix and uterus; Z95.0 Presence of cardiac pacemaker
CPT/HCPCS: 36415; 70450; 71045; 74176; 76705; 80053; 80074; 81001; 83605; 83690; 83735; 84484; 85025; 85610; 85730; 87040; 87070; 87081; 87086; 87088; 87186; 87880; 93005; 93306; 96372; 96374

== ENCOUNTER 2021-08-28 13:11 | Inpatient (IN) | payer MEDICARE, MEDICAID ==
[~2021-08-28] VITALS: Ht 149.9 cm; Wt 44.0 kg
[~2021-08-28 13:11] MED LIST changes: +ACET-1156 PO; +ALPR0.254 PO; +ASPI-543 PO; +ATEN-60 PO; +CEPH500C PO; +LOVA20TA4 PO; +WARF1TAB36 PO
[2021-08-28] MEDS ORDERED: PROCHLORPERAZINE EDISYLATE 5 MG/ML 2ML VIAL IV ONE (15:30)
[2021-08-28] MEDS ORDERED: ACETAMINOPHEN 325 MG TAB PO ONE (15:30)
[2021-08-28] MEDS ORDERED: SODIUM CHLORIDE 0.9% 1,000 ML IV ONE (15:30)
[2021-08-28] MEDS ORDERED: SODIUM CHLORIDE 0.9% 1,000 ML IVB ONE (16:00)
[2021-08-28] MEDS ORDERED: ONDANSETRON HCL 4 MG/2 ML VIAL IV ONE (16:00)
[2021-08-28 16:06] LABS: Basophils # (auto) 0 10 ^3/uL (0-0.2); Basophils % (auto) 0.2 % (0.0-2.0); Eosinophils # (auto) 0 10 ^3/uL (0-0.8); Hematocrit 40.3 % (36.0-46.0); Hemoglobin 13.6 g/dL (12.2-16.2); Lymphocytes # (auto) 0.9 10 ^3/uL (0.4-5.4); Lymphocytes % (auto) 11.9 % (10.0-50.0); Mean Corpuscular Hgb Conc. 33.8 g/dL (32.0-36.0); Monocytes # (auto) 0.5 10 ^3/uL (0-1.3); Monocytes % (auto) 7.1 % (0.0-12.0); Neutrophils # (auto) 6.2 10 ^3/uL (1.6-8.6); Neutrophils % (auto) 80.8 % (37.0-80.0); Red Blood Cells 4.38 10^6/uL (4.0-5.20); Red Cell Distribution Width 13.7 % (11.8-14.3); White Blood Cell 7.7 10^3/uL (4.4-10.8)
[2021-08-28 16:23] LABS: Albumin 3.7 g/dL (3.4-5.0); BUN/Creatinine Ratio 28.3; Calcium 8.9 mg/dL (8.5-10.1); Potassium 3.5 mmol/L (3.5-5.1)
[2021-08-28 16:26] LABS: Bilirubin, Total 0.4 mg/dL (0.2-1.0)
[2021-08-28] MEDS ORDERED: IOHEXOL 300 MG/ML 100ML BOTTLE IJ ONE (17:20)
[2021-08-28] MEDS ORDERED: MORPHINE SULFATE INJECTION 2 MG/ML SYRG IV ONE (17:45)
[2021-08-28] MEDS ORDERED: LORazepam 2MG/ML-1ML VIAL IV ONE (17:45)
[2021-08-29] MEDS ORDERED: ENOXAPARIN SOD 40 MG/0.4 ML SYRINGE SC ONE (07:15)
[2021-08-29] MEDS ORDERED: LABETALOL HCL 5 MG/ML 4ML SYRINGE IV ONE (07:15)
[2021-08-29] MEDS ORDERED: DOCUSATE SOD 100 MG CAP PO PRN (07:15)
[2021-08-29] MEDS ORDERED: ONDANSETRON HCL 4 MG/2 ML VIAL IV PRN (07:15)
[2021-08-29 09:12] LABS: INR 1.02 (0.9-1.15)
[2021-08-29] MEDS: ASPirin-EC 81 mg tab PO SCH (09:31)
[2021-08-29] MEDS: ATENOLOL 25 MG TAB PO SCH ×2 (10:14→22:03)
[2021-08-29] MEDS ORDERED: ATENOLOL 25 MG TAB PO SCH (10:32)
[2021-08-29] MEDS ORDERED: hydrALAZINE HCL 20 MG/ML VL IV PRN (11:30)
[2021-08-29 12:55] VITALS: BP 185/74
[2021-08-29] MEDS ORDERED: LORazepam 2MG/ML-1ML VIAL IV ONE (14:00)
[2021-08-29] MEDS ORDERED: SODIUM CHLOR 0.9% PF (SALINE LOCK) 10ML VIAL/SYR IV SCH (14:00)
[2021-08-29] MEDS ORDERED: NITROGLYCERIN 0.4 MG SL TAB SL PRN (14:15)
[2021-08-29] MEDS ORDERED: amLODIPine BESYLATE 5 MG TAB PO ONE (14:15)
[2021-08-29] MEDS ORDERED: ALPRAZolam 0.5 MG TAB PO PRN (14:15)
[2021-08-29] MEDS ORDERED: MORPHINE SULFATE INJECTION 2 MG/ML SYRG IV PRN ×2 (14:15)
[2021-08-29] MEDS: HYDROcodone-ACET 5/325MG TAB PO PRN (14:40)
[2021-08-29 17:02] VITALS: BP 127/66
[2021-08-29 18:06] VITALS: BP 185/74
[2021-08-29 19:04] LABS: Folate (Folic Acid) 19.12 ng/mL (5.38-24)
[2021-08-29 22:00] VITALS: BP 127/63
[2021-08-29] MEDS ORDERED: LORazepam 2MG/ML-1ML VIAL IV PRN (22:00)
[2021-08-29] MEDS: SODIUM CHLOR 0.9% PF (SALINE LOCK) 10ML VIAL/SYR IV SCH (22:01)
[2021-08-29] MEDS: PRAVASTATIN SODIUM 20 MG TAB PO SCH (22:02)
[2021-08-29] MEDS: DONEPEZIL HYDROCHLORIDE 5 MG TAB PO SCH (23:23)
[2021-08-30 05:21] VITALS: BP 133/90
[2021-08-30] MEDS: SODIUM CHLOR 0.9% PF (SALINE LOCK) 10ML VIAL/SYR IV SCH ×3 (07:09→22:00)
[2021-08-30] MEDS: ASPirin-EC 81 mg tab PO SCH (10:00)
[2021-08-30] MEDS: ATENOLOL 25 MG TAB PO SCH ×2 (10:00→22:00)
[2021-08-30] MEDS: amLODIPine BESYLATE 5 MG TAB PO SCH (10:00)
[2021-08-30] MEDS ORDERED: GADOTERATE MEG 7.5 MMOL/15ml INJ (0.5MMOL/ml) IV ONE (11:58)
[2021-08-30 12:00] VITALS: BP 148/82
[2021-08-30] MEDS ORDERED: LORazepam 2MG/ML-1ML VIAL IM ONE (13:30)
[2021-08-30] MEDS ORDERED: LORazepam 2MG/ML-1ML VIAL IV ONE (14:00)
[2021-08-30] MEDS ORDERED: HALOPERIDOL LACTATE 5 MG/ML INJ VIAL IM PRN (14:30)
[2021-08-30] MEDS: MIRTAZAPINE 30 MG TAB PO SCH (22:00)
[2021-08-30] MEDS: DONEPEZIL HYDROCHLORIDE 5 MG TAB PO SCH (22:00)
[2021-08-30] MEDS: PRAVASTATIN SODIUM 20 MG TAB PO SCH (22:00)
[2021-08-30] MEDS: QUEtiapine FUMARATE 25 MG TAB PO SCH (22:00)
[2021-08-31] MEDS: SODIUM CHLOR 0.9% PF (SALINE LOCK) 10ML VIAL/SYR IV SCH ×3 (07:17→21:13)
[2021-08-31 09:00] VITALS: BP 159/83
[2021-08-31] MEDS: ASPirin-EC 81 mg tab PO SCH (09:15)
[2021-08-31] MEDS: ATENOLOL 25 MG TAB PO SCH ×2 (09:16→21:20)
[2021-08-31] MEDS: amLODIPine BESYLATE 5 MG TAB PO SCH (09:17)
[2021-08-31 14:03] LABS: Cholesterol 168 mg/dL (< 200)
[2021-08-31 14:05] LABS: HDL Cholesterol 49 mg/dL (40-59); LDL Cholesterol 99 mg/dL (< 100); Triglycerides 120 mg/dL (< 150)
[2021-08-31 17:00] VITALS: BP 145/86
[2021-08-31] MEDS: MIRTAZAPINE 30 MG TAB PO SCH (21:14)
[2021-08-31] MEDS: PRAVASTATIN SODIUM 20 MG TAB PO SCH (21:14)
[2021-08-31] MEDS: QUEtiapine FUMARATE 25 MG TAB PO SCH (21:15)
[2021-08-31] MEDS: DONEPEZIL HYDROCHLORIDE 5 MG TAB PO SCH (21:15)
[2021-08-31 22:00] VITALS: BP 131/70
[2021-09-01 05:00] VITALS: BP 138/73
[2021-09-01] MEDS: SODIUM CHLOR 0.9% PF (SALINE LOCK) 10ML VIAL/SYR IV SCH ×3 (06:06→22:00)
[2021-09-01 09:07] VITALS: BP 156/82
[2021-09-01] MEDS: ASPirin-EC 81 mg tab PO SCH (10:00)
[2021-09-01] MEDS: ATENOLOL 25 MG TAB PO SCH ×2 (10:00→22:23)
[2021-09-01] MEDS: amLODIPine BESYLATE 5 MG TAB PO SCH (10:00)
[2021-09-01 16:29] VITALS: BP 146/89
[2021-09-01 22:00] VITALS: BP 126/60
[2021-09-01] MEDS: MIRTAZAPINE 30 MG TAB PO SCH (22:23)
[2021-09-01] MEDS: QUEtiapine FUMARATE 25 MG TAB PO SCH (22:23)
[2021-09-01] MEDS: DONEPEZIL HYDROCHLORIDE 5 MG TAB PO SCH (22:23)
[2021-09-01] MEDS: PRAVASTATIN SODIUM 20 MG TAB PO SCH (22:23)
[2021-09-02] MEDS: HYDROcodone-ACET 5/325MG TAB PO PRN (03:51)
[2021-09-02 04:47] VITALS: BP 118/66
[2021-09-02] MEDS: SODIUM CHLOR 0.9% PF (SALINE LOCK) 10ML VIAL/SYR IV SCH ×3 (05:21→22:00)
[2021-09-02 08:25] VITALS: BP 148/60
[2021-09-02 09:00] VITALS: BP 148/60
[2021-09-02] MEDS: ASPirin-EC 81 mg tab PO SCH (09:06)
[2021-09-02] MEDS: amLODIPine BESYLATE 5 MG TAB PO SCH (09:07)
[2021-09-02] MEDS: ATENOLOL 25 MG TAB PO SCH ×2 (09:07→22:38)
[2021-09-02 15:00] VITALS: BP 149/83
[2021-09-02] MEDS ORDERED: HALOPERIDOL 5 MG TAB PO PRN (15:30)
[2021-09-02 22:00] VITALS: BP 143/63
[2021-09-02] MEDS: MIRTAZAPINE 30 MG TAB PO SCH (22:37)
[2021-09-02] MEDS: PRAVASTATIN SODIUM 20 MG TAB PO SCH (22:37)
[2021-09-02] MEDS: DONEPEZIL HYDROCHLORIDE 5 MG TAB PO SCH (22:37)
[2021-09-02] MEDS: QUEtiapine FUMARATE 25 MG TAB PO SCH (22:37)
[2021-09-03 05:00] VITALS: BP 127/78
[2021-09-03] MEDS: SODIUM CHLOR 0.9% PF (SALINE LOCK) 10ML VIAL/SYR IV SCH ×2 (05:45→09:48)
[2021-09-03 08:10] VITALS: BP 159/72
[2021-09-03 08:35] VITALS: BP 159/72
[2021-09-03] MEDS: ASPirin-EC 81 mg tab PO SCH (09:45)
[2021-09-03] MEDS: QUEtiapine FUMARATE 25 MG TAB PO SCH (09:46)
[2021-09-03] MEDS: ATENOLOL 25 MG TAB PO SCH (09:47)
[2021-09-03] MEDS: amLODIPine BESYLATE 5 MG TAB PO SCH (09:47)
[2021-09-03 13:54] VITALS: BP 140/69
[2021-09-03 15:18] VITALS: BP 140/69
== END 2021-09-03 17:05 | DRG 199 ==
LOC: ER 13:11 → EDBD 13:11 → OVERFLOW 08-29 07:10 → WEST WING 08-29 12:53 → TELE-WESTW 08-29 20:12 → WEST WING 08-30 10:58
PROVIDERS: ADMIT Internal Medicine; ATTEND Internal Medicine
DX: I16.1 Hypertensive emergency (principal); I67.83 Posterior reversible encephalopathy syndrome; I67.4 Hypertensive encephalopathy; G30.9 Alzheimer's disease, unspecified; F02.80 Dementia in other diseases classified elsewhere, unspecified severity, without behavioral disturbance, psychotic disturbance, mood disturbance, and anxiety; I12.9 Hypertensive chronic kidney disease with stage 1 through stage 4 chronic kidney disease, or unspecified chronic kidney disease; F17.200 Nicotine dependence, unspecified, uncomplicated; N18.9 Chronic kidney disease, unspecified; Z20.822 Contact with and (suspected) exposure to COVID-19; I25.10 Atherosclerotic heart disease of native coronary artery without angina pectoris; I25.2 Old myocardial infarction; Z79.899 Other long term (current) drug therapy; Z91.19 Patient's noncompliance with other medical treatment and regimen; Z82.49 Family history of ischemic heart disease and other diseases of the circulatory system; Z82.5 Family history of asthma and other chronic lower respiratory diseases; Z83.3 Family history of diabetes mellitus; Z95.0 Presence of cardiac pacemaker; Z90.710 Acquired absence of both cervix and uterus
CPT/HCPCS: 36415; 70450; 74176; 80053; 80061; 82306; 82607; 82746; 83605; 83690; 84443; 84484; 85025; 85379; 85610; 93306; 95819; 96361; 96372; 96374; 96375; G0378; J2405; J3490

== ENCOUNTER 2022-09-05 12:39 | Emergency (ER) | payer MEDICARE, MEDICAID ==
[~2022-09-05] VITALS: Ht 157.5 cm; Wt 55.0 kg
[2022-09-05] MEDS ORDERED: diphenhdrAMINE HCL 50 MG/1 ML VL IM ONE (14:00)
[2022-09-05] MEDS ORDERED: PER60TP TOP (14:02)
[2022-09-05] MEDS ORDERED: DIPH25CA66 PO (14:02)
[2022-09-05 14:12] VITALS: BP 178/76
== END 2022-09-05 14:26 | disposition home or self-care (01) ==
LOC: ER 12:39
DX: B86 Scabies (principal); I12.9 Hypertensive chronic kidney disease with stage 1 through stage 4 chronic kidney disease, or unspecified chronic kidney disease; N18.9 Chronic kidney disease, unspecified; F03.90 Unspecified dementia, unspecified severity, without behavioral disturbance, psychotic disturbance, mood disturbance, and anxiety; Z86.73 Personal history of transient ischemic attack (TIA), and cerebral infarction without residual deficits; Z95.0 Presence of cardiac pacemaker
CPT/HCPCS: 96372; 99283; J1200

== ENCOUNTER 2022-11-16 19:41 | Inpatient (IN) | payer MEDICARE, MEDICAID ==
[~2022-11-16] VITALS: Ht 149.9 cm; Wt 45.0 kg
[~2022-11-16 19:41] MED LIST changes: -ACET-1156 PO; +ACET-1881 PO; +DIPH25CA66 PO; +PER60TP TOP; -WARF1TAB36 PO; +WARF4TAB70 PO
[2022-11-16 20:20] VITALS: PULSE 68; RESP 16; O2SAT 98
[2022-11-16 21:08] LABS: Basophils # (auto) 0.1 10 ^3/uL (0-0.2); Basophils % (auto) 1.2 % (0.0-2.0); Eosinophils # (auto) 0.1 10 ^3/uL (0-0.8); Eosinophils % (auto) 1.3 % (0.0-7.0); Hemoglobin 12.8 g/dL (12.2-16.2); Lymphocytes # (auto) 0.6 10 ^3/uL (0.4-5.4); Lymphocytes % (auto) 6.2 % (10.0-50.0); Mean Corpuscular Hgb Conc. 33.6 g/dL (32.0-36.0); Mean Corpuscular Volume 89.3 fL (80.0-100.0); Monocytes # (auto) 0.8 10 ^3/uL (0-1.3); Monocytes % (auto) 8.5 % (0.0-12.0); Neutrophils # (auto) 7.7 10 ^3/uL (1.6-8.6); Neutrophils % (auto) 82.8 % (37.0-80.0); Nucleated Red Blood Cells % 0.1 %; Red Blood Cells 4.26 10^6/uL (4.0-5.20); Red Cell Distribution Width 14.1 % (11.8-14.3); White Blood Cell 9.3 10^3/uL (4.4-10.8)
[2022-11-16 21:24] LABS: Albumin 3.5 g/dL (3.4-5.0); Calcium 8.8 mg/dL (8.5-10.1); Potassium 3.5 mmol/L (3.5-5.1)
[2022-11-16 21:28] LABS: BUN/Creatinine Ratio 22.1 (10.0-20.0); Bilirubin, Total 0.4 mg/dL (0.2-1.0); Total Protein 7.2 g/dL (6.4-8.2)
[2022-11-17] MEDS ORDERED: MORPHINE SULFATE INJ 2 MG/ml SYRG IV ONE (04:00)
[2022-11-17] MEDS ORDERED: SODIUM CHLORIDE 0.9% 500 ML IVB ONE (04:00)
[2022-11-17] MEDS ORDERED: ONDANSETRON HCL 4 MG/2 ML VIAL IV ONE (04:00)
[2022-11-17 04:12] LABS: Urine Bacteria FEW /hpf (None Seen); Urine Blood Negative /uL (Negative); Urine Specific Gravity 1.009 (1.001-1.035); Urine WBC 2 /hpf (0 - 5)
[2022-11-17 04:59] LABS: Basophils # (auto) 0 10 ^3/uL (0-0.2); Basophils % (auto) 0.3 % (0.0-2.0); Eosinophils # (auto) 0.1 10 ^3/uL (0-0.8); Eosinophils % (auto) 1.1 % (0.0-7.0); Hematocrit 38.6 % (36.0-46.0); Hemoglobin 13.1 g/dL (12.2-16.2); Lymphocytes # (auto) 0.7 10 ^3/uL (0.4-5.4); Lymphocytes % (auto) 9.2 % (10.0-50.0); Mean Corpuscular Hemoglobin 30.1 pg (28.0-32.0); Mean Corpuscular Hgb Conc. 33.8 g/dL (32.0-36.0); Mean Corpuscular Volume 89.2 fL (80.0-100.0); Monocytes # (auto) 0.7 10 ^3/uL (0-1.3); Monocytes % (auto) 8.5 % (0.0-12.0); Neutrophils # (auto) 6.3 10 ^3/uL (1.6-8.6); Neutrophils % (auto) 80.9 % (37.0-80.0); Red Blood Cells 4.33 10^6/uL (4.0-5.20); Red Cell Distribution Width 13.9 % (11.8-14.3); White Blood Cell 7.8 10^3/uL (4.4-10.8)
[2022-11-17 05:06] LABS: INR 1.04 (0.9-1.15); Partial Thromboplastin Time 28.5 SEC (24.5-34.5)
[2022-11-17 05:10] LABS: Albumin 3.2 g/dL (3.4-5.0); Calcium 8.9 mg/dL (8.5-10.1)
[2022-11-17 05:15] LABS: BUN/Creatinine Ratio 19.2 (10.0-20.0); Bilirubin, Total 0.4 mg/dL (0.2-1.0); Total Protein 7.1 g/dL (6.4-8.2)
[2022-11-17 05:20] LABS: Potassium 2.8 mmol/L (3.5-5.1)
[2022-11-17] MEDS: POTASSIUM CHL 20MEQ/100ML 100 ML IV SCH ×2 (05:30→08:07)
[2022-11-17] MEDS ORDERED: POTASSIUM CHL 20MEQ/100ML 100 ML IV ONE (05:42)
[2022-11-17 09:24] VITALS: PULSE 60; RESP 16; O2SAT 96
[2022-11-17] MEDS ORDERED: NITROGLYCERIN 0.4 MG SL TAB SL PRN (10:00)
[2022-11-17] MEDS ORDERED: MORPHINE SULFATE INJ 2 MG/ml SYRG IV PRN (10:00)
[2022-11-17] MEDS: ATENOLOL 25 MG TAB PO SCH ×2 (10:51→22:22)
[2022-11-17] MEDS: ASPirin-EC 81 mg tab PO SCH (10:51)
[2022-11-17] MEDS ORDERED: DOCU-94 PO (12:02)
[2022-11-17] MEDS ORDERED: AMLO1TAB23 PO (12:02)
[2022-11-17] MEDS ORDERED: SERT25TA28 PO (12:02)
[2022-11-17] MEDS ORDERED: DIPH25CA66 PO (12:02)
[2022-11-17] MEDS ORDERED: MIRT-93 PO (12:02)
[2022-11-17] MEDS ORDERED: DONE5TAB11 PO (12:02)
[2022-11-17] MEDS ORDERED: PRAV20TA3 PO (12:02)
[2022-11-17] MEDS ORDERED: HYDR25TA5 PO (12:02)
[2022-11-17] MEDS: SERTRALINE HCL 50 MG TAB PO SCH ×2 (15:09→21:59)
[2022-11-17] MEDS: ALPRAZolam 0.25 MG TAB PO SCH ×2 (15:09→21:59)
[2022-11-17] MEDS: hydrOXYzine 25 MG TAB or CAP PO PRN (15:09)
[2022-11-17] MEDS: HEPARIN SODIUM (PORCINE) 5000 UNITS/ML 1ML VIAL SC SCH ×2 (15:14→22:47)
[2022-11-17] MEDS: PRAVASTATIN SODIUM 20 MG TAB PO SCH (18:32)
[2022-11-17 19:45] VITALS: PULSE 65; RESP 14; O2SAT 98
[2022-11-17] MEDS: DONEPEZIL HYDROCHLORIDE 5 MG TAB PO SCH (21:59)
[2022-11-17] MEDS: MIRTAZAPINE 30 MG TAB PO SCH (21:59)
[2022-11-17] MEDS: MELATONIN 5 MG TAB PO SCH (22:21)
[2022-11-18] MEDS: SERTRALINE HCL 50 MG TAB PO SCH ×4 (06:00→22:00)
[2022-11-18] MEDS: ALPRAZolam 0.25 MG TAB PO SCH ×4 (06:00→22:00)
[2022-11-18 06:30] LABS: Basophils # (auto) 0 10 ^3/uL (0-0.2); Basophils % (auto) 0.4 % (0.0-2.0); Eosinophils # (auto) 0.2 10 ^3/uL (0-0.8); Eosinophils % (auto) 1.9 % (0.0-7.0); Hematocrit 35.3 % (36.0-46.0); Lymphocytes % (auto) 12.6 % (10.0-50.0); Mean Corpuscular Hemoglobin 30.1 pg (28.0-32.0); Mean Corpuscular Hgb Conc. 34.1 g/dL (32.0-36.0); Mean Corpuscular Volume 88.3 fL (80.0-100.0); Monocytes # (auto) 0.8 10 ^3/uL (0-1.3); Monocytes % (auto) 10.6 % (0.0-12.0); Neutrophils # (auto) 5.8 10 ^3/uL (1.6-8.6); Neutrophils % (auto) 74.5 % (37.0-80.0); Red Cell Distribution Width 13.5 % (11.8-14.3); White Blood Cell 7.8 10^3/uL (4.4-10.8)
[2022-11-18 06:45] LABS: Potassium 3.2 mmol/L (3.5-5.1)
[2022-11-18 06:57] LABS: Bilirubin, Total 0.4 mg/dL (0.2-1.0); Calcium 8.4 mg/dL (8.5-10.1); Total Protein 6.6 g/dL (6.4-8.2)
[2022-11-18 08:24] VITALS: PULSE 60; RESP 21; O2SAT 98
[2022-11-18] MEDS: DOCUSATE SOD 100 MG CAP PO SCH ×2 (09:59→10:35)
[2022-11-18] MEDS: HCTZ 25 MG TAB PO SCH ×2 (09:59→10:34)
[2022-11-18] MEDS: ASPirin-EC 81 mg tab PO SCH ×2 (09:59→10:35)
[2022-11-18] MEDS: ATENOLOL 25 MG TAB PO SCH ×3 (10:00→22:00)
[2022-11-18] MEDS ORDERED: ATORVASTATIN 20 MG TAB PO SCH (10:00)
[2022-11-18] MEDS: HEPARIN SODIUM (PORCINE) 5000 UNITS/ML 1ML VIAL SC SCH ×2 (10:28→22:17)
[2022-11-18] MEDS: hydrOXYzine 25 MG TAB or CAP PO PRN (12:11)
[2022-11-18] MEDS ORDERED: POTASSIUM CHLORIDE 40 MEQ in D5W/LACTATED RINGERS 1,000 ML IV SCH (14:30)
[2022-11-18] MEDS ORDERED: cefTRIAXone 1GM/50ML D5W 50 ML IV ONE (14:45)
[2022-11-18 15:30] LABS: Basophils # (auto) 0 10 ^3/uL (0-0.2); Basophils % (auto) 0.4 % (0.0-2.0); Eosinophils # (auto) 0.1 10 ^3/uL (0-0.8); Eosinophils % (auto) 1.2 % (0.0-7.0); Hematocrit 38.5 % (36.0-46.0); Lymphocytes # (auto) 0.9 10 ^3/uL (0.4-5.4); Lymphocytes % (auto) 11.2 % (10.0-50.0); Mean Corpuscular Hemoglobin 29.7 pg (28.0-32.0); Mean Corpuscular Hgb Conc. 33.8 g/dL (32.0-36.0); Mean Corpuscular Volume 87.9 fL (80.0-100.0); Monocytes % (auto) 11.7 % (0.0-12.0); Neutrophils # (auto) 6.1 10 ^3/uL (1.6-8.6); Neutrophils % (auto) 75.5 % (37.0-80.0); Nucleated Red Blood Cells % 0.1 %; Red Blood Cells 4.38 10^6/uL (4.0-5.20); Red Cell Distribution Width 13.9 % (11.8-14.3); White Blood Cell 8.1 10^3/uL (4.4-10.8)
[2022-11-18 15:58] LABS: Potassium 3.3 mmol/L (3.5-5.1)
[2022-11-18 16:11] LABS: Albumin 3.1 g/dL (3.4-5.0); BUN/Creatinine Ratio 22.2 (10.0-20.0); Bilirubin, Total 0.4 mg/dL (0.2-1.0); Calcium 8.9 mg/dL (8.5-10.1); Total Protein 7.1 g/dL (6.4-8.2)
[2022-11-18] MEDS ORDERED: LACTULOSE 20Gm/30ML SOLN PO ONE (17:00)
[2022-11-18] MEDS: PRAVASTATIN SODIUM 20 MG TAB PO SCH (18:11)
[2022-11-18 18:20] VITALS: BP 112/58; PULSE 82; RESP 16
[2022-11-18 18:47] LABS: Folate (Folic Acid) > 24.00 ng/mL (5.38-24)
[2022-11-18 20:00] VITALS: PULSE 62; PULSE 63; RESP 16
[2022-11-18 22:00] VITALS: BP 130/68; PULSE 70; RESP 18; TEMP 98.3; O2SAT 97
[2022-11-18] MEDS: hydrALAZINE HCL 25 MG TAB PO SCH (22:00)
[2022-11-18] MEDS: MIRTAZAPINE 30 MG TAB PO SCH (22:00)
[2022-11-18] MEDS: MELATONIN 5 MG TAB PO SCH (22:00)
[2022-11-18] MEDS: DONEPEZIL HYDROCHLORIDE 5 MG TAB PO SCH (22:00)
[2022-11-19 04:41] VITALS: BP 135/64; PULSE 60; RESP 16; TEMP 97.8; O2SAT 96
[2022-11-19] MEDS: hydrALAZINE HCL 25 MG TAB PO SCH ×2 (05:03→13:56)
[2022-11-19] MEDS: SERTRALINE HCL 50 MG TAB PO SCH ×2 (05:04→13:56)
[2022-11-19] MEDS: ALPRAZolam 0.25 MG TAB PO SCH ×2 (05:04→13:55)
[2022-11-19] MEDS ORDERED: SOD CHL 0.9%/ KCL 40MEQ 1,000 ML IV SCH (06:00)
[2022-11-19 08:00] VITALS: PULSE 63; PULSE 66; RESP 18; O2SAT 94
[2022-11-19] MEDS ORDERED: D5W/SOD CHL 0.45%/KCL 40MEQ 1,000 ML IV SCH (08:15)
[2022-11-19 09:00] VITALS: BP 145/65; PULSE 60; RESP 16; TEMP 98.8; O2SAT 98
[2022-11-19] MEDS ORDERED: cefTRIAXone 1GM/50ML D5W 50 ML IV SCH (09:00)
[2022-11-19 09:38] LABS: Basophils # (auto) 0 10 ^3/uL (0-0.2); Basophils % (auto) 0.5 % (0.0-2.0); Eosinophils # (auto) 0.2 10 ^3/uL (0-0.8); Eosinophils % (auto) 2.7 % (0.0-7.0); Hematocrit 37.8 % (36.0-46.0); Hemoglobin 12.6 g/dL (12.2-16.2); Lymphocytes # (auto) 1.1 10 ^3/uL (0.4-5.4); Lymphocytes % (auto) 14.6 % (10.0-50.0); Mean Corpuscular Hemoglobin 29.8 pg (28.0-32.0); Mean Corpuscular Hgb Conc. 33.4 g/dL (32.0-36.0); Mean Corpuscular Volume 89.2 fL (80.0-100.0); Monocytes # (auto) 0.7 10 ^3/uL (0-1.3); Monocytes % (auto) 10.2 % (0.0-12.0); Neutrophils # (auto) 5.2 10 ^3/uL (1.6-8.6); Nucleated Red Blood Cells % 0.1 %; Red Blood Cells 4.24 10^6/uL (4.0-5.20); Red Cell Distribution Width 14.2 % (11.8-14.3); White Blood Cell 7.2 10^3/uL (4.4-10.8)
[2022-11-19] MEDS: HCTZ 25 MG TAB PO SCH (09:41)
[2022-11-19] MEDS: ATENOLOL 25 MG TAB PO SCH (09:42)
[2022-11-19] MEDS: ASPirin-EC 81 mg tab PO SCH (09:42)
[2022-11-19 09:52] LABS: BUN/Creatinine Ratio 22.8 (10.0-20.0); Potassium 3.2 mmol/L (3.5-5.1)
[2022-11-19] MEDS: HEPARIN SODIUM (PORCINE) 5000 UNITS/ML 1ML VIAL SC SCH (09:54)
[2022-11-19 09:57] LABS: Folate (Folic Acid) > 24.00 ng/mL (5.38-24)
[2022-11-19 13:00] VITALS: BP 144/70; PULSE 68; RESP 16; TEMP 98.3; O2SAT 98
[2022-11-19] MEDS: DOCUSATE SOD 100 MG CAP PO SCH (13:58)
[2022-11-19] MEDS ORDERED: POTASSIUM CHL 20 Meq TABLET PO ONE (15:30)
[2022-11-19] MEDS ORDERED: METR375C PO (15:58)
[2022-11-19] MEDS ORDERED: LEVO500T91 PO (15:58)
[2022-11-19 17:00] VITALS: BP 158/75; PULSE 75; RESP 16; TEMP 98; O2SAT 100
[2022-11-19 17:05] VITALS: BP 158/75; PULSE 62; RESP 18; TEMP 98; O2SAT 100
[2022-11-19] MEDS: PRAVASTATIN SODIUM 20 MG TAB PO SCH (18:30)
[2022-11-20 07:06] LABS: RPR Non Reactive (Non Reactive)
== END 2022-11-19 18:45 | disposition hospice, home (50) | DRG 463 ==
LOC: EDUNIT# 19:41 → ER 19:41 → EDBD 19:41 → TELE 11-17 10:32 → TELE-CENTR 11-18 16:24
PROVIDERS: ADMIT Internal Medicine; ATTEND Student in an Organized Health Care Education/Training Program
DX: N13.6 Pyonephrosis (principal); G93.41 Metabolic encephalopathy; E44.0 Moderate protein-calorie malnutrition; F03.90 Unspecified dementia, unspecified severity, without behavioral disturbance, psychotic disturbance, mood disturbance, and anxiety; E86.0 Dehydration; E87.6 Hypokalemia; I12.9 Hypertensive chronic kidney disease with stage 1 through stage 4 chronic kidney disease, or unspecified chronic kidney disease; R33.9 Retention of urine, unspecified; I25.10 Atherosclerotic heart disease of native coronary artery without angina pectoris; N18.9 Chronic kidney disease, unspecified; Z86.73 Personal history of transient ischemic attack (TIA), and cerebral infarction without residual deficits; Z51.5 Encounter for palliative care; Z90.710 Acquired absence of both cervix and uterus; Z95.0 Presence of cardiac pacemaker; Z68.20 Body mass index [BMI] 20.0-20.9, adult
CPT/HCPCS: 36415; 70450; 71045; 74176; 76705; 80048; 80053; 80061; 81001; 82140; 82607; 82746; 83036; 83605; 83690; 83880; 84132; 84443; 84484; 85025; 85610; 85730; 86592; 87040; 87086; G0378; J0696; J2405; J3480